=== PATIENT | male | born 1940 | race Caucasian/White ===

== ENCOUNTER 2018-01-23 08:18 | Day surgery (SDC) | payer MEDICARE, OTHER ==
[~2018-01-23] VITALS: Ht 167.6 cm; Wt 71.4 kg
[~2018-01-23 08:18] MED LIST: ASPI-556 PO; ATOR20TA86 PO; KDUR20 PO; MAGN250T10 PO; VERA180SR PO
[2018-01-23 08:54] LABS: ANION GAP 9 mmol/L (8-16); CALCIUM, TOTAL 8.8 mg/dL (8.8-10.5); CARBON DIOXIDE 29 mmol/L (22-29); CHLORIDE 103 mmol/L (98-107); GLUCOSE,RANDOM 134 mg/dL (70-110); SODIUM SERUM 141 mmol/L (136-145); UREA NITROGEN, BLOOD 11 mg/dL (7-18)
[2018-01-23 08:57] LABS: GLOMERULAR FILTR. RATE CALC > 60 mL/min (>60); POTASSIUM 2.9 mmol/L (3.5-5.1)
[2018-01-23] MEDS ORDERED: POTASSIUM CHLORIDE 20 MEQ ER TABLET ONE (09:13)
[2018-01-23] MEDS ORDERED: POTASSIUM CHLORIDE 20 MEQ ER TABLET PO SCH (09:15)
[2018-01-23] MEDS ORDERED: HYDR25TA PO (09:28)
[2018-01-23] MEDS ORDERED: NITR.4 SL (09:29)
[2018-01-23] MEDS ORDERED: 0.9% SODIUM CHLORIDE 10 ML SYRINGE IVP PRN (09:30)
[2018-01-23] MEDS ORDERED: METOPROLOL TARTRATE 50 MG TABLET PO PRN (09:30)
[2018-01-23] MEDS ORDERED: IOVERSOL 350 MG/ML 150 ML VIAL ONE (11:11)
== END 2018-01-23 12:35 | disposition home or self-care (01) ==
LOC: SURGERY 08:18 → EDSTATUS 11:00 → SURGERY 12:35
PROVIDERS: ATTEND Internal Medicine Cardiovascular Disease
DX: I25.10 Atherosclerotic heart disease of native coronary artery without angina pectoris (principal); M47.814 Spondylosis without myelopathy or radiculopathy, thoracic region; K44.9 Diaphragmatic hernia without obstruction or gangrene; I44.0 Atrioventricular block, first degree; I44.4 Left anterior fascicular block; I10 Essential (primary) hypertension; E78.00 Pure hypercholesterolemia, unspecified; Z79.82 Long term (current) use of aspirin; Z90.89 Acquired absence of other organs; Z79.899 Other long term (current) drug therapy
CPT/HCPCS: 36415; 75574; 80048; 84132; 93005; Q9967

== ENCOUNTER → 2022-06-28 | Outpatient (CLI) | payer OTHER ==
[~2022-06-28] MED LIST changes: +HYDR25TA2 PO; -KDUR20 PO; +NITR0.4T52 SL; +POTA-206 PO; -VERA180SR PO; +VERA180T61 PO
== END | disposition home or self-care (01) ==
LOC: RADPV 08:08
PROVIDERS: ATTEND Chiropractor
DX: I50.1 Left ventricular failure, unspecified (principal); I25.10 Atherosclerotic heart disease of native coronary artery without angina pectoris; I73.9 Peripheral vascular disease, unspecified
CPT/HCPCS: 93306; 93922